=== PATIENT | male | born 1995 | race Caucasian/White ===

== ENCOUNTER 2016-12-14 12:30 | Emergency (ER) | payer BC, MEDICAID ==
[2016-12-14] MEDS ORDERED: Ketorolac 30 MG/ML SDV IVPUSH ONE (14:14)
[2016-12-14] MEDS ORDERED: Sodium Chloride 0.9% 1,000 ML IV ONE (14:14)
--- NOTE | 2016-12-14 14:41 | EDM.PDOC ---
ED HPI GENERAL MEDICAL PROBLEM - General Chief Complaint: Back Pain or Injury Stated Complaint: LOWER BACK PAIN Time Seen by Provider: 12/14/16 14:15 Source of Information: Reports: Patient History Limitations: Reports: No Limitations - History of Present Illness INITIAL COMMENTS - FREE TEXT/NARRATIVE: History of present illness: [21-year-old male comes in complaining of acute on chronic lower back pain. Denies trauma and indicates that he is having some radiculopathy down bilateral legs denies incontinence of bladder or bowel. Denies any known recent injury indicates that this has been chronic with rare flares since childhood.] Review of systems: As per history of present illness and below otherwise all systems reviewed and negative. Past medical history: As per history of present illness and as reviewed below otherwise noncontributory. Surgical history: As per history of present illness and as reviewed below otherwise noncontributory. Social history: No reported history of drug or alcohol abuse. Family history: As per history of present illness and as reviewed below otherwise noncontributory. Physical exam: HEENT: Atraumatic, normocephalic, pupils reactive, negative for conjunctival pallor or scleral icterus, mucous membranes moist, throat clear, neck supple, nontender, trachea midline. Lungs: Clear to auscultation, breath sounds equal bilaterally, chest nontender. Heart: S1S2, regular, negative for clicks, rubs, or JVD. Abdomen: Soft, nondistended, nontender. Negative for masses or hepatosplenomegaly. Negative for costovertebral tenderness. Pelvis: Stable nontender. Genitourinary: Deferred. Rectal: Deferred. Extremities: Atraumatic, negative for cords or calf pain. Neurovascular unremarkable. Neuro: Awake, alert, oriented. Cranial nerves II through XII unremarkable. Cerebellum unremarkable. Motor and sensory unremarkable throughout. Exam nonfocal. Diagnostics: [X-ray of lower lumbar spine] Therapeutics: [Toradol, Norflex] Impression: [chronic low back pain] Plan: [norflex,meloxicam] Definitive disposition and diagnosis as appropriate pending reevaluation and review of above. back Pain Score (Numeric/FACES): 10 - Related Data Allergies Allergy/AdvReac Type Severity Reaction Status Date / Time No Known Allergies Allergy Verified 12/14/16 12:54 Home Meds: Home Meds Meloxicam 7.5 mg PO BID #30 tablet 12/14/16 [Rx] Orphenadrine [Norflex] 100 mg PO BID #28 tab.er 12/14/16 [Rx] Past Medical History - Past Health History Medical/Surgical History: Denies Medical/Surgical History Psychiatric History: Reports: Depression - Infectious Disease History Infectious Disease History: Reports: Chicken Pox - Past Surgical History HEENT Surgical History: Reports: Tonsillectomy Social & Family History - Family History Family Medical History: Noncontributory - Tobacco Use Smoking Status *Q: Current Every Day Smoker Years of Tobacco use: 3 Packs/Tins Daily: 1 - Alcohol Use Days Per Week of Alcohol Use: 0 - Recreational Drug Use Recreational Drug Use: No ED ROS GENERAL - Review of Systems Review Of Systems: See Below (See history of present illness) ED EXAM,LOWER BACK PAIN/INJURY - Physical Exam Exam: See Below (See history of present illness) Course - Vital Signs Last Recorded V/S: Last Vital Signs Temp 36.8 C 12/14/16 12:55 Pulse 57 L 12/14/16 12:55 Resp 20 12/14/16 12:55 BP 130/84 12/14/16 12:55 Pulse Ox 97 12/14/16 12:55 - Orders/Labs/Meds Orders: Active Orders 24 hr Category Date Time Status Lumbar Spine 2 or 3V [CR] Stat Exams 12/14/16 14:14 Taken Sodium Chloride 0.9% [Normal Saline] 1,000 ml Med 12/14/16 14:14 Active IV STAT Medication Orders Sodium Chloride (Normal Saline) 1,000 mls @ 999 mls/hr IV STAT ONE Stop: 12/14/16 15:14 Last Admin: 12/14/16 14:25 Dose: 999 mls/hr Meds: Medications Generic Name Dose Route Start Last Admin Trade Name Freq PRN Reason Stop Dose Admin Sodium Chloride 1,000 mls @ 999 mls/hr 12/14/16 14:14 12/14/16 14:25 Normal Saline IV 12/14/16 15:14 999 mls/hr STAT ONE Administration Discontinued Medications Generic Name Dose Route Start Last Admin Trade Name Freq PRN Reason Stop Dose Admin Ketorolac Tromethamine 30 mg 12/14/16 14:14 12/14/16 14:25 Toradol IVPUSH 12/14/16 14:15 30 mg ONETIME ONE Administration Departure - Departure Time of Disposition: 15:13 Disposition: Home, Self-Care 01 Condition: Good Clinical Impression: Lumbar back pain - Discharge Information Forms: ED Department Discharge Additional Instructions: The following information is given to patients seen in the emergency department who are being discharged to home. This information is to outline your options for follow-up care. We provide all patients seen in our emergency department with a follow-up referral. The need for follow-up, as well as the timing and circumstances, are variable depending upon the specifics of your emergency department visit. If you don't have a primary care physician on staff, we will provide you with a referral. We always advise you to contact your personal physician following an emergency department visit to inform them of the circumstance of the visit and for follow-up with them and/or the need for any referrals to a consulting specialist. The emergency department will also refer you to a specialist when appropriate. This referral assures that you have the opportunity for follow-up care with a specialist. All of these measure are taken in an effort to provide you with optimal care, which includes your follow-up. Under all circumstances we always encourage you to contact your private physician who remains a resource for coordinating your care. When calling for follow-up care, please make the office aware that this follow-up is from your recent emergency room visit. If for any reason you are refused follow-up, please contact the [facility] Emergency Department at and asked to speak to the emergency department charge nurse. Take medication as directed Follow-up with primary care provider one to 2 days Return to ED as needed as discussed - My Orders Last 24 Hours: My Active Orders 12/14/16 14:14 Lumbar Spine 2 or 3V [CR] Stat Sodium Chloride 0.9% [Normal Saline] 1,000 ml IV STAT - Assessment/Plan Last 24 Hours: My Active Orders 12/14/16 14:14 Lumbar Spine 2 or 3V [CR] Stat Sodium Chloride 0.9% [Normal Saline] 1,000 ml IV STAT
[2016-12-14] MEDS ORDERED: Morphine 2 MG/ML Syringe IVPUSH ONE (15:24)
[2016-12-14] MEDS ORDERED: Ondansetron 4 MG/2 ML SDV IVPUSH ONE (15:24)
[2016-12-14 16:01] VITALS: BP 128/58
--- NOTE | 2016-12-14 20:32 | CR ---
EXAM DATE: 12/14/16 PATIENT'S AGE: 21 Patient: MICHELLE ELLIOTT Facility: [place], [place] Site . Site : 1995 Study: XRay Spine Lumbar [id number] 2:54:52 PM Ordering Physician: [facility] Final Report: INDICATION: Back pain for 1 day. TECHNIQUE: Lumbar spine radiograph 3 view COMPARISON: None FINDINGS: Bones: Alignment is normal. No acute fractures or aggressive osseous lesions seen. Joints: Disc spaces are unremarkable. The facet joints are unremarkable in appearance. Soft tissues: Unremarkable. IMPRESSION: 1. No acute osseous injuries are identified. Dictated by Jorge Shoemaker MD @ 12/14/2016 3:02:02 PM Dictated by: Jorge Shoemaker MD @ 12/14/2016 15:02:09 (Electronic Signature) Report Signed by Proxy. PARI
== END 2016-12-14 15:58 | disposition home or self-care (01) ==
LOC: MW.ED 12:30
DX: M54.5 Low back pain (principal); G89.29 Other chronic pain; F17.210 Nicotine dependence, cigarettes, uncomplicated; Z98.890 Other specified postprocedural states
CPT/HCPCS: 72100; 96361; 96374; 96375; 99283; J1885; J2270; J2405; J7040

== ENCOUNTER 2020-09-18 16:15 | Emergency (ER) | payer OTHER, BC ==
--- NOTE | 2020-09-18 17:02 | EDM.PDOC ---
ED HPI GENERAL MEDICAL PROBLEM - General Stated Complaint: LT HAND PUNCTURE WOUND Time Seen by Provider: 09/18/20 16:24 Source of Information: Reports: Patient History Limitations: Reports: No Limitations - History of Present Illness INITIAL COMMENTS - FREE TEXT/NARRATIVE: 25-year-old male past mostly depression presents for puncture wound to the left hand. Patient was shaving with a razor when he accidentally poked himself in the webbing of his left dorsal hand between his first and second digits. He noticed the bleeding was heavy and was wondering if it needed sutures. He is up-to-date on his tetanus vaccination. - Related Data Allergies Allergy/AdvReac Type Severity Reaction Status Date / Time No Known Allergies Allergy Verified 12/14/16 12:54 Home Meds: Home Meds Meloxicam 7.5 mg PO BID #30 tablet 12/14/16 [Rx] Orphenadrine [Norflex] 100 mg PO BID #28 tab.er 12/14/16 [Rx] Past Medical History - Past Health History Medical/Surgical History: Denies Medical/Surgical History Psychiatric History: Reports: Depression - Infectious Disease History Infectious Disease History: Reports: Chicken Pox - Past Surgical History HEENT Surgical History: Reports: Tonsillectomy Social & Family History - Family History Family Medical History: No Pertinent Family History ED ROS GENERAL - Review of Systems Review Of Systems: Comprehensive ROS is negative, except as noted in HPI. ED EXAM, GENERAL - Physical Exam Exam: See Below Exam Limited By: No Limitations General Appearance: Alert, WD/WN, No Apparent Distress Ears: Hearing Grossly Normal Throat/Mouth: Normal Voice, No Airway Compromise Head: Atraumatic, Normocephalic Neck: Normal Inspection Respiratory/Chest: No Respiratory Distress, No Accessory Muscle Use Cardiovascular: Normal Peripheral Pulses, Regular Rate, Rhythm Extremities: Normal Inspection Neurological: Alert, Normal Cognition, Normal Gait Psychiatric: Normal Affect, Normal Mood Skin Exam: Warm, Dry, Intact, Normal Color, Other (0.5 cm laceration between the first and second digit of the left hand on the dorsal side) ED GENERAL MEDICAL PROCEDURES - Laceration/Wound Repair Left Hand Lac/wound length in cm: 0.5 Appearance: Subcutaneous Distal NVT: Neuro & Vascular Intact Anesthetic Type: Local Local Anesthesia - Lidocaine (Xylocaine): 1% with EPI Local Anesthetic Volume: 3cc Skin Prep: Chlorhexidine (Hibiciens) Saline irrigation (cc's): 30 Closed with: Sutures Suture Size: 5-0 # of Sutures: 1 Suture Type: Silk Drain Placement: No Sterile Dressing Applied: Nurse Tetanus Status Addressed: Yes Complications: No Course - Orders/Labs/Meds Orders: Active Orders 24 hr Category Date Time Status Lidocaine 1% [Xylocaine-MPF 1%] Med 09/18/20 17:08 Once 5 ml INJECT ONETIME ONE - Re-Assessments/Exams Free Text/Narrative Re-Assessment/Exam: 09/18/20 17:10 Laceration repaired as noted in procedure note. Patient's tetanus status was addressed. Will discharge with suture removal in 7 to 10 days. Departure - Departure Time of Disposition: 17:10 Disposition: Home, Self-Care 01 Condition: Good Clinical Impression: Laceration - Discharge Information Instructions: Laceration Care, Adult, [id number] Referrals: Chaim Rodriguez MD [Primary Care Provider] - Additional Instructions: You should return in 7 to 10 days to have your stitches removed. The following information is given to patients seen in the emergency department who are being discharged to home. This information is to outline your options for follow-up care. We provide all patients seen in our emergency department with a follow-up referral. The need for follow-up, as well as the timing and circumstances, are variable depending upon the specifics of your emergency department visit. If you don't have a primary care physician on staff, we will provide you with a referral. We always advise you to contact your personal physician following an emergency department visit to inform them of the circumstance of the visit and for follow-up with them and/or the need for any referrals to a consulting specialist. The emergency department will also refer you to a specialist when appropriate. This referral assures that you have the opportunity for follow-up care with a specialist. All of these measure are taken in an effort to provide you with optimal care, which includes your follow-up. Under all circumstances we always encourage you to contact your private physician who remains a resource for coordinating your care. When calling for follow-up care, please make the office aware that this follow-up is from your recent emergency room visit. If for any reason you are refused follow-up, please contact the [facility] Emergency Department at and asked to speak to the emergency department charge nurse. Please follow up with your primary care physician. If you do not have a primary care physician, see below: [facility] [address], [place] [id number] [facility] [address], [place] [address] [facility] [address], [place] [address] - My Orders Last 24 Hours: My Active Orders 09/18/20 17:08 Lidocaine 1% [Xylocaine-MPF 1%] 5 ml INJECT ONETIME ONE - Assessment/Plan Last 24 Hours: My Active Orders 09/18/20 17:08 Lidocaine 1% [Xylocaine-MPF 1%] 5 ml INJECT ONETIME ONE
[2020-09-18 17:14] VITALS: BP 138/71; PULSE 75
== END 2020-09-18 17:55 | disposition home or self-care (01) ==
LOC: MW.ED 16:15
DX: S61.412A Laceration without foreign body of left hand, initial encounter (principal); Z79.899 Other long term (current) drug therapy; W27.8XXA Contact with other nonpowered hand tool, initial encounter
CPT/HCPCS: 12001; 99282; 99282-25

== ENCOUNTER 2020-10-15 20:13 | Emergency (ER) | payer OTHER, BC ==
--- NOTE | 2020-10-15 21:09 | EDM.PDOC ---
ED HPI GENERAL MEDICAL PROBLEM - General Stated Complaint: LT FINGER HAND INJURY Time Seen by Provider: 10/15/20 21:04 Source of Information: Reports: Patient History Limitations: Reports: No Limitations - History of Present Illness INITIAL COMMENTS - FREE TEXT/NARRATIVE: HISTORY AND PHYSICAL: History of present illness: Patient is a 25-year-old male who presents to the emergency room with complaints of increased pain and infection to a pressure puncture site. Yesterday afternoon he was using a high-pressure hydraulic oil tool, the seal broke off and hydraulic oil pierced his skin resulting in a puncture injury. He was seen at [facility], had an x-ray and placed on amoxicillin. He states he is now experiencing increased pain and redness to the finger extending into the hand. Patient denies any fever, chills, headache, change in vision, syncope or near syncope. Denies any chest pain, back pain, shortness of breath or cough. Denies any GI or symptoms. Patient has been eating and drinking appropriately. Tetanus was updated 2 years ago Review of systems: As per history of present illness and below otherwise all systems reviewed and negative. Past medical history: As per history of present illness and as reviewed below otherwise noncontributory. Surgical history: As per history of present illness and as reviewed below otherwise noncontributory. Social history: See social history for further information Family history: As per history of present illness and as reviewed below otherwise noncontributory. Physical exam: General: Well developed and well nourished. Alert and orientated x 3. Nontoxic in appearance and in no acute distress. Vital signs are stable and have been reviewed by me. Nursing notes were reviewed. HEENT: Atraumatic, normocephalic, pupils equal and reactive bilaterally, negative for conjunctival pallor or scleral icterus, mucous membranes moist, TMs normal bilaterally, throat clear, neck supple, nontender, trachea midline. No drooling or trismus noted. No meningeal signs. No hot potato voice noted. Lungs: Clear to auscultation bilaterally. No wheezes, rales, or rhonchi. Chest nontender. Normal work of breathing, no accessory muscles used. Heart: S1S2, regular rate and rhythm without overt murmur, gallops, or rubs. No JVD. No peripheral edema Abdomen: Soft, nondistended, nontender. Normoactive bowel sounds. Negative for masses or costovertebral tenderness. Pelvis: Stable nontender. Genitourinary/Rectal: Deferred. Skin: Patient's left fourth digit is red and swollen. Darkened skin where the hydraulic oil had pierced the skin just below the middle knuckle joint. Redness extends into the palmar surface approximately 2 finger breaths and to the dorsal aspect approximately 2 finger breaths going into the base of the fifth and third digits. Remaining skin is intact, warm, dry. No lesions or rashes noted. Hematologic: No petechiae or purpra. Mucosa appropriate color and normal nail bed color and refill. Extremities: Please see skin for details, moves all extremities per self without difficulty or deficits, negative for cords or calf pain. Neurovascular unremarkable. Neuro: Awake, alert, oriented. Cranial nerves II through XII unremarkable. Cerebellum unremarkable. Motor and sensory unremarkable throughout. Exam nonfocal. Psychiatric: Mood and affect are appropriate. Normal thought process. Answering questions appropriately. Notes: *This patient was seen and evaluated during the 2019 SARS-CoV-2 novel coronavirus pandemic period. Community viral transmission is ongoing at time of this encounter and the emergency department is operating under pandemic response procedures. Patient's hand was outlined in a surgical marker. I did call Dr. Rico, hand surgeon on-call at [facility] in [place]. I was able to share some pictures with patient consent for better evaluation/assessment for plan of care. Dr. Rico recommends 1 dose of IV Zosyn here with the patient to closely follow the area of redness over the next 24 hours. If the infection does not appear that it is improving he needs to go to [facility] in [place]'s ER and may need surgery. I have talked with the patient about today's findings, in addition to providing specific details for plan of care. Reassessment at the time of disposition demonstrates that the patient is in no acute distress. The patient is stable for discharge, counseling was provided and we discussed in great detail signs and symptoms that would prompt them to return to the Emergency Department. Medication, follow up and supportive care measures were reviewed and discussed. Voices understanding and is agreeable to plan of care. Denies any further questions or concerns at this time. Diagnostics: CBC, CMP Therapeutics: Zosyn Prescription: Augmentin, [facility] Impression: Puncture injury Cellulitis Plan: 1. You were evaluated today on an emergent basis. Your infection of the hand is serious. We outlined the area of redness with a surgical marker. It is import ant that you continue to monitor the site for signs of improvement. If the redness exceeds the border and gets worse you need to go to [facility] in [place]. I did speak with Dr. Rico, the hand surgeon, who is aware of your case. He states if the infection does not improve and worsens you may require surgery. If the infection appears to be improving, continue to take the medications as directed. I still would like you to follow-up with your primary care provider for reevaluation in the next week. 2. You can alternate Tylenol and ibuprofen as needed for pain and fever management. [facility] for moderate to severe pain. This medication may cause drowsiness so do not take it while driving or needing to be functioning outside of the house. 3. If your symptoms should worsen, new symptoms develop or any of the signs and symptoms we discussed should arise please return to the emergency room or call 911 (if needed). Definitive disposition and diagnosis as appropriate pending reevaluation and review of above. L hand Pain Score (Numeric/FACES): 5 - Related Data Allergies Allergy/AdvReac Type Severity Reaction Status Date / Time No Known Allergies Allergy Verified 12/14/16 12:54 Home Meds: Home Meds buPROPion HCL [Bupropion Xl] 09/18/20 [History] Amoxicillin 500 mg PO BID 10/15/20 [History] Past Medical History - Past Health History Medical/Surgical History: Denies Medical/Surgical History Psychiatric History: Reports: Depression Hematologic History: Reports: None - Infectious Disease History Infectious Disease History: Reports: Chicken Pox - Past Surgical History HEENT Surgical History: Reports: Tonsillectomy Social & Family History - Family History Family Medical History: No Pertinent Family History ED ROS GENERAL - Review of Systems Review Of Systems: Comprehensive ROS is negative, except as noted in HPI. ED EXAM, SKIN/RASH Exam: See Below (See dictation) Course - Vital Signs Last Recorded V/S: Last Vital Signs Temp 97.7 F 10/15/20 21:13 Pulse 71 10/15/20 21:13 Resp 18 10/15/20 21:13 BP 123/63 10/15/20 21:13 Pulse Ox 95 10/15/20 21:13 - Orders/Labs/Meds Orders: Active Orders 24 hr Category Date Time Status CBC WITH AUTO DIFF [HEME] Stat Lab 10/15/20 21:13 Ordered COMPREHENSIVE METABOLIC PN,CMP [CHEM] Stat Lab 10/15/20 21:13 Ordered Piperacillin/Tazobactam [Piperacil-Tazobact] 3.375 gm Med 10/15/20 21:13 Ordered Sodium Chloride 0.9% [Normal Saline] 50 ml IV ONETIME Sodium Chloride 0.9% [Normal Saline] 1,000 ml Med 10/15/20 21:13 Ordered IV NOW Medication Orders Sodium Chloride (Normal Saline) 1,000 mls @ 999 mls/hr IV NOW STA Stop: 10/15/20 22:13 Piperacillin Sod/Tazobactam (Sod 3.375 gm/ Sodium Chloride) 50 mls @ 100 mls/hr IV ONETIME ONE Stop: 10/15/20 21:42 Meds: Medications Generic Name Dose Route Start Last Admin Trade Name Freq PRN Reason Stop Dose Admin Sodium Chloride 1,000 mls @ 999 mls/hr 10/15/20 21:13 Normal Saline IV 10/15/20 22:13 NOW STA Piperacillin Sod/Tazobactam 50 mls @ 100 mls/hr 10/15/20 21:13 Sod 3.375 gm/ Sodium Chloride IV 10/15/20 21:42 ONETIME ONE Departure - Departure Time of Disposition: 21:43 Disposition: Home, Self-Care 01 Clinical Impression: High-pressure injection injury of finger of left hand Qualifiers: Encounter type: initial encounter Qualified Code(s): S69.82XA - Other specified injuries of left wrist, hand and finger(s), initial encounter Cellulitis Qualifiers: Site of cellulitis: extremity Site of cellulitis of extremity: lower extremity Laterality: left Qualified Code(s): L03.116 - Cellulitis of left lower limb - Discharge Information Instructions: Cellulitis, Adult, [id number] Referrals: Chaim Rodriguez MD [Primary Care Provider] - Additional Instructions: The following information is given to patients seen in the emergency department who are being discharged to home. This information is to outline your options for follow-up care. We provide all patients seen in our emergency department with a follow-up referral. The need for follow-up, as well as the timing and circumstances, are variable depending upon the specifics of your emergency department visit. If you don't have a primary care physician on staff, we will provide you with a referral. We always advise you to contact your personal physician following an emergency department visit to inform them of the circumstance of the visit and for follow-up with them and/or the need for any referrals to a consulting specialist. The emergency department will also refer you to a specialist when appropriate. This referral assures that you have the opportunity for follow-up care with a specialist. All of these measure are taken in an effort to provide you with optimal care, which includes your follow-up. Under all circumstances we always encourage you to contact your private physician who remains a resource for coordinating your care. When calling for follow-up care, please make the office aware that this follow-up is from your recent emergency room visit. If for any reason you are refused follow-up, please contact the [facility] Emergency Department at and asked to speak to the emergency department charge nurse. Dr. Pulido & Dr. Rico [address] [id number] Thank you for choosing the [facility] emergency department in [place] for your medical needs today. It was a pleasure caring for you. Today you were seen in the emergency department for hand infection and injury. 1. You were evaluated today on an emergent basis. Your infection of the hand is serious. We outlined the area of redness with a surgical marker. It is important that you continue to monitor the site for signs of improvement. If the redness exceeds the border and gets worse you need to go to [facility] in [place]. I did speak with Dr. Rico, the hand surgeon, who is aware of your case. He states if the infection does not improve and worsens you may require surgery. If the infection appears to be improving, continue to take the medications as directed. I still would like you to follow-up with your primary care provider for reevaluation in the next week. 2. You can alternate Tylenol and ibuprofen as needed for pain and fever management. [facility] for moderate to severe pain. This medication may cause drowsiness so do not take it while driving or needing to be functioning outside of the house. 3. If your symptoms should worsen, new symptoms develop or any of the signs and symptoms we discussed should arise please return to the emergency room or call 911 (if needed). Sepsis Event Note (ED) - Focused Exam Vital Signs: Vital Signs Temp Pulse Resp BP Pulse Ox 10/15/20 21:13 97.7 F 71 18 123/63 95 - My Orders Last 24 Hours: My Active Orders 10/15/20 21:13 CBC WITH AUTO DIFF [HEME] Stat COMPREHENSIVE METABOLIC PN,CMP [CHEM] Stat Piperacillin/Tazobactam [Piperacil-Tazobact] 3.375 gm Sodium Chloride 0.9% [Normal Saline] 50 ml IV ONETIME 10/15/20 21:13 Sodium Chloride 0.9% [Normal Saline] 1,000 ml IV NOW - Assessment/Plan Last 24 Hours: My Active Orders 10/15/20 21:13 CBC WITH AUTO DIFF [HEME] Stat COMPREHENSIVE METABOLIC PN,CMP [CHEM] Stat Piperacillin/Tazobactam [Piperacil-Tazobact] 3.375 gm Sodium Chloride 0.9% [Normal Saline] 50 ml IV ONETIME 10/15/20 21:13 Sodium Chloride 0.9% [Normal Saline] 1,000 ml IV NOW
[2020-10-15] MEDS ORDERED: Piperacillin/Tazobactam 3.375 GM in Sodium Chloride 0.9% 50 ML IV ONE (21:13)
[2020-10-15] MEDS ORDERED: Sodium Chloride 0.9% 1,000 ML IV STA (21:13)
[2020-10-15] MEDS ORDERED: Acetaminophen/HYDROcodone 325-5 MG Tab PO ONE ×2 (21:44→21:46)
[2020-10-15 22:15] LABS: BLOOD UREA NITROGEN,BUN 13 mg/dL (7.0-18.0); CARBON DIOXIDE,CO2 25.4 mmol/L (21.0-32.0); CHLORIDE,CL 104 mmol/L (98-107); GLUCOSE RANDOM 113 mg/dL (74-106); POTASSIUM,K 3.5 mmol/L (3.5-5.1); SODIUM,NA 138 mmol/L (136-148)
[2020-10-15 22:28] VITALS: BP 119/78; PULSE 79
== END 2020-10-15 22:25 | disposition home or self-care (01) ==
LOC: MW.ED 20:13
DX: S69.82XA Other specified injuries of left wrist, hand and finger(s), initial encounter (principal); L03.116 Cellulitis of left lower limb; W31.89XA Contact with other specified machinery, initial encounter
CPT/HCPCS: 36415; 80053; 85025; 96365; 99284; A9270; J2543; J7030; 99283